=== PATIENT | male | born 1980 | race Caucasian/White ===

== ENCOUNTER 2016-12-30 17:29 | Emergency (ER) | payer MEDICAID ==
[~2016-12-30] VITALS: Ht 167.6 cm; Wt 59.0 kg
[2016-12-30 17:40] VITALS: Ht 167.6 cm; Wt 59.0 kg
--- NOTE | 2016-12-30 18:19 | ERD ---
ER Documentation Chief Complaint Date/Time DATE: 12/30/16 TIME: 18:00 Chief Complaint lac to right pinky today HPI 36-year-old male who presented emergency department for laceration to right fifth/pinky finger (dominant side). Stated this happened around 15:30 today while he was at work. Was throwing an old toilet bowl when this accidentally broke down injuring his right index finger. Not up-to-date on his tetanus shot. Denies headache, loss of consciousness, dizziness, blurry vision, changes in vision, photophobia, facial pain, ear pain, throat pain, difficulty swallowing, neck pain, shoulder pain, chest pain, cough, hemoptysis, abdominal pain, back pain, loss of appetite, nausea, vomiting, hematochezia, diarrhea, constipation, urinary symptoms, bladder and bowel incontinences, extremity weakness, extremity tenderness, numbness or tingling sensation, difficulty walking, recent travel, recent exposure to illness, recent antibiotic use in the last 3 months, fever, chills. Allergy: No known drug allergies. PMH: No past medical history. Medications: Not taking any prescription medications. Surgery: Denies. Family history: Denies. 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 ROS All systems reviewed and are negative except as per history of present illness. Medications Home Meds Active Scripts Cephalexin* (Keflex*) 500 Mg Capsule, 500 MG PO QID for 5 Days, CAP Prov:PASILABAN,KLAR F 12/30/16 Sulfamethoxazole/Trimethoprim* (Bactrim Ds* Tablet) 1 Each Tablet, 1 TAB PO DAILY, #7 TAB Prov:PASILABAN,KLAR F 12/30/16 Hydrocodone/Acetaminophen ([place]raw[place] 5-325 Tablet) 1 Each Tablet, 1 TAB PO Q6H Y for PAIN, #7 TAB Prov:PASILABAN,KLAR F 12/30/16 Allergies Allergies: Coded Allergies: No Known Allergy (Unverified , 12/30/16) PMhx/Soc Medical and Surgical Hx: pt denies Medical Hx, pt denies Surgical Hx History of Surgery: No Anesthesia Reaction: No Hx Neurological Disorder: No Hx Respiratory Disorders: No Hx Cardiac Disorders: No Hx Psychiatric Problems: No Hx Miscellaneous Medical Probl: No Hx Alcohol Use: No Hx Substance Use: No Hx Tobacco Use: No Smoking Status: Never smoker Physical Exam Vitals Vital Signs Date Time Temp Pulse Resp B/P Pulse Ox O2 Delivery O2 Flow Rate FiO2 12/30/16 17:40 98.5 100 18 128/86 100 Physical Exam CONSTITUTIONAL: Well-appearing; well-nourished; in no apparent distress. HEAD: Normocephalic; atraumatic. EYES: Conjunctiva clear, sclera non-icteric, EOM intact. PERRL Ears: Hearing intact. EACs clear, TMs non-bulging, non-inflamed, translucent & mobile, ossicles normal appearance, No obstructions, no erythema, no discharges Nose: No obstructions. No polyps. No external lesions. Mucosa non-inflamed. No external lesions, septum and turbinates normal. No rhinorrhea. No discharges. Frontal sinus is non-tender to palpation. Maxillary sinus is non-tender to palpation. MOUTH: Moist mucous membranes, no lesion, no obstructions, no vesicles, no thrush, patent airway Throat: Uvula in midline. Right tonsil is +1 with no erythema, no exudate. Left tonsil is +1 with no erythema, no exudate. Tolerating secretions well. Good gag reflex. Patent airway. Neck: Supple, without lesions, bruits, or adenopathy. No mass. Thyroid non- enlarged and non-tender to palpation. CHEST: Symmetrical chest. Respirations even and not labored. No retractions noted. CARDIOVASCULAR: Normal S1, S2. RRR. No murmurs, gallops. RESPIRATORY: Normal chest excursion with respiration; breath sounds clear and equal bilaterally; no wheezes, rhonchi, or rales. Breathing even and unlabored. Speaking in clear, full, and complete sentences w/ ease. ABDOMEN: Normal bowel sounds normal. Soft, round, non-distended, non-guarding, no tenderness, no rebound, no organomegaly, no masses, no pulsating abdominal mass. No hernia. No peritoneal signs. : No CVA tenderness. BACK: Symmetrical shoulder. Spine is midline without deformity, tenderness. No evidence of trauma or deformity. PELVIS: Stable pelvis. No evidence of trauma or deformity. MUSCULOSKELETAL: Normal gait and station. No misalignment, asymmetry, crepitation, defects, tenderness, masses, effusions, decreased range of motion, instability, atrophy or abnormal strength or tone in the head, neck, spine, ribs , pelvis or extremities. No calf tenderness. Please see skin assessment. NEUROVASCULAR: Distal pulses are present. Pedal pulse are present, equal, and normal. Capillary refills are < 2 seconds. NEUROLOGIC: Alert and oriented x4. Speaks full and clear sentences. Cranial Nerves II-XII normal. Sensation to pain, touch, and proprioception normal. Grossly unremarkable. No neurologic deficits. Romberg test is negative. PSYCHOLOGICAL: The patients mood and manner are appropriate. No hallucinations , delusions. Not SI. Not HI. Has the capacity to decide for self SKIN: Normal for age and ethnicity; warm; dry; good turgor; no apparent lesions or exudates. No rashes, hives, discoloration. Significant deep laceration to right fifth/pinky finger measuring approximately 4.2 cm in length on dorsal aspect and 5 cm in length on volar aspect (connected with each other). Dressing was applied to control bleeding. Right fifth/pinky finger has good and full range of motion with good flexion and extension with a score of 5/5. Right fourth/ring finger, right middle/long finger, right index/pointing finger , right thumb has good and full range of motion with good flexion and extension with a score of 5/5. Right wrist is unremarkable. Radial pulse is good. Right elbow/shoulder is good and full range of motion and is unremarkable examination. Left upper extremities unremarkable. Results 24 hrs Current Medications Medications (Trade) Dose Ordered Sig/Kacie Route PRN Reason Start Time Stop Time Status Last Admin Dose Admin Diphtheria/ Tetanus/Acell Pertussis (Adacel) 0.5 ml ONCE ONCE IM* 12/30/16 18:30 12/30/16 18:31 DC 12/30/16 18:19 Morphine Sulfate (morphine) 4 mg ONCE ONCE IM 12/30/16 18:30 12/30/16 18:31 DC 12/30/16 18:32 Ondansetron HCl (Zofran Odt) 4 mg ONCE STAT ODT 12/30/16 18:23 12/30/16 18:24 DC 12/30/16 18:31 Cephalexin (Keflex) 500 mg ONCE ONCE PO 12/30/16 19:00 12/30/16 19:01 DC 12/30/16 19:00 Trimethoprim/ Sulfamethoxazole (Bactrim (Ds)) 1 tab ONCE ONCE PO 12/30/16 19:00 12/30/16 19:01 DC 12/30/16 19:00 Lidocaine (Xylocaine 1% (Mdv) 20 ml) 20 ml ONCE ONCE SC 12/30/16 20:00 12/30/16 20:07 DC Lidocaine (Xylocaine 2% (Mdv) 20 ml) 20 ml ONCE ONCE INJ 12/30/16 20:30 12/30/16 20:31 DC Procedures/MDM Examination: Please see physical examination. Disease process, medical treatment was explained to the patient and family member. They verbalized understanding and agreed with the diagnostic tests, medical treatment, and follow-up care. Radiology: X-ray of the right fifth/pinky finger Impression: Marked soft tissue edema and irregularity compatible with history of deep laceration. There is no evidence of radiopaque soft tissue foreign body. There is no evidence of acute osseous abnormality. Treatment: Adacel IM. Mcgraws p.o. Keflex. Bactrim. Procedure: Laceration repair. Procedure was started with attending physician Dr. Gonsalo Ferreira. Lidocaine 2% 4 cc subcu/digital block. Copious/pressure irrigation with saline and Betadine. No foreign bodies found. Tendon not visualized. Noted arterial bleeding. Ethilon 4-0 x 29 and Ethilon 6-0 x2 total of 31 simple interrupted sutures to laceration of 4.2 cm dorsal aspect that extends to volar aspect of the right fifth/pinky finger that measures 5 cm in length. Laceration are connected with total length of 5.2 cm in length. Re-evaluation: Patient tolerated the laceration repair to right index finger. No active bleeding. Patient is able to flex and extend right fifth/pinky finger with a score of 5/5 on proximal, middle, and distal aspect of the phalanges. Circulation is intact. No neurovascular deficit. Right radial pulse is within normal limits. Has good and full range of motion of right thumb , right index, right middle, and right index/ring finger with full function of extension and flexion with a score of 5/5. Right wrist is unremarkable with good and full range of motion. Right elbow is unremarkable. Right shoulder is unremarkable. Has good color of right upper extremities. Patient stated that he feels much better at this time. Alert and oriented 4. Speaks full and clear sentences. Metal splint was applied to right fifth/pinky finger. No neurovascular deficits prior to and after the application of metal splint. Consultation: Case was discussed with attending physician, Dr. Gonsalo Ferreira who agreed with my laceration repair procedure, medical decision making, discharging the patient with pain medicine and Bactrim and Keflex. Have the patient come back in 2 days for a wound check. Differential diagnosis: Laceration Medical decision makin-year-old male who presented emergency department for laceration to right fifth/pinky finger (dominant side). Stated this happened around 15:30 today while he was at work. Was throwing an old toilet bowl when this accidentally broke down injuring his right index finger. Not up- to-date on his tetanus shot. Patient's complaint, patient history about his complaint, my physical findings, diagnostic test results, my reevaluation are consistent with final diagnosis of punctured wound/laceration secondary to injury with laceration repair procedure. Patient tolerated well. No evidence of tendon injury. Case was discussed with attending physician, Dr. Gonsalo Ferreira who agreed with my medical decision making. Patient also agreed with the plan of care as well as follow-up care. Medications prescribed are the following: Bactrim. Keflex. Mcgraws. Patient and family member are made aware of the side effects and adverse reactions of the medications prescribed. Instructed on when to seek emergent and medical attention in case allergic/anaphylactic reactions or severe side effects and or adverse reactions to medications. Patient and family member verbalized understanding. Patient instructed Instructed to follow-up with his PCP in 24-48 hours. Come back in 2 days for a wound check. Come back in 7-10 days for a removal of sutures. Instructed to Call 911 for chest pain, shortness of breath. Advised to come back here in ED as soon as possible for severity of symptoms which includes but not limited to: any new symptoms; shortness of breath/difficulty of breathing; cardiovascular changes; severe gastrointestinal symptoms; signs and symptoms of bleeding and or infection; signs of compartment syndrome/neurovascular changes; neurological changes/deficits. Patient and family member verbalized understanding. Upon discharge, patient is alert and oriented x 4, speaks full and clear sentences, denies pain, has no neurological deficits, has no neurovascular deficits, difficulty of breathing. Breathing even and unlabored. Lung sounds are clear to auscultation. Not in distress. Appears comfortable. Ambulatory with steady gait. Appears satisfied with care provided here in ED. Departure Diagnosis: Primary Impression: Laceration Additional Impressions: Puncture wound Finger laceration Finger injury Condition: Good Additional Instructions: Patient instructed Instructed to follow-up with his PCP in 24-48 hours. Come back in 2 days for a wound check. Come back in 7-10 days for a removal of sutures. Instructed to Call 911 for chest pain, shortness of breath. Advised to come back here in ED as soon as possible for severity of symptoms which includes but not limited to: any new symptoms; shortness of breath/difficulty of breathing; cardiovascular changes; severe gastrointestinal symptoms; signs and symptoms of bleeding and or infection; signs of compartment syndrome/neurovascular changes; neurological changes/deficits. Patient and family member verbalized understanding. NANCY VELAZQUEZ Dec 30, 2016 18:19
[2016-12-30] MEDS ORDERED: ONDANSETRON (ODT) 4 MG TAB ODT STA (18:23)
[2016-12-30] MEDS ORDERED: DIPHTH/TET/ACEL PERTUSS (ADULT) 0.5 ML VIAL IM* ONE (18:30)
[2016-12-30] MEDS ORDERED: morphine 10 MG INJ IM ONE (18:30)
[2016-12-30] MEDS ORDERED: TRIMETHOPRIM/SULFAMETHOX (DS) TAB PO ONE (19:00)
[2016-12-30] MEDS ORDERED: CEPHALEXIN 500 MG CAP PO ONE (19:00)
--- NOTE | 2016-12-30 19:39 | RADRPT ---
PROCEDURE: XR Finger. CLINICAL INDICATION: Pain. Deep laceration. TECHNIQUE: Right fifth finger x-rays, three views. COMPARISON: None. FINDINGS: Bony mineralization is normal. Bony cortices are intact. Joint spaces are well maintained. Marked soft tissue edema and soft tissue irregularity are present and compatible with history of deep lacer ation. An overlying bandaging is in place. There is no evidence of radiopaque soft tissue foreign b goldy. IMPRESSION: Marked soft tissue edema and irregularity compatible with history of deep laceration. There is no e vidence of radiopaque soft tissue foreign body. There is no evidence of acute osseous abnormality. RPTAT: HLST .Lee Ann Cabrera MD, Date Time Electronically viewed and signed by .Lee Ann Cabrera MD, on 12/30/2016 19:39 .T/
[2016-12-30] MEDS ORDERED: LIDOCAINE 1% (MDV) 20 ML INJ SC ONE (20:00)
[2016-12-30] MEDS ORDERED: LIDOCAINE 2% (MDV) 20 ML INJ INJ ONE (20:30)
[2016-12-30] MEDS ORDERED: HYDR-906 PO (22:01)
[2016-12-30] MEDS ORDERED: SULF1TAB31 PO (22:01)
[2016-12-30] MEDS ORDERED: CEPH-443 PO (22:01)
[2016-12-30] MEDS ORDERED: BACITRACIN 0.9 GM OINT TOP ONE (22:30)
[2016-12-30 22:45] VITALS: BP 109/66; PULSE 88; RESP 16
[2016-12-30] MEDS ORDERED: ACETAMINOPHEN 325 MG TAB PO ONE (23:00)
== END 2016-12-30 22:46 | disposition home or self-care (01) ==
LOC: FTE 17:29
DX: S61.216A Laceration without foreign body of right little finger without damage to nail, initial encounter (principal); S61.236A Puncture wound without foreign body of right little finger without damage to nail, initial encounter; W26.8XXA Contact with other sharp object(s), not elsewhere classified, initial encounter; Y92.89 Other specified places as the place of occurrence of the external cause; Z23 Encounter for immunization
CPT/HCPCS: 12002; 73140; 90471; 90715; 96372; J2270; Z7502; Z7610

== ENCOUNTER 2017-01-03 10:45 | Emergency (ER) | payer MEDICAID ==
[~2017-01-03] VITALS: Ht 157.5 cm; Wt 58.0 kg
[~2017-01-03 10:45] MED LIST: CEPH-443 PO; HYDR-906 PO; SULF1TAB31 PO
[2017-01-03 10:54] VITALS: Ht 157.5 cm; Wt 58.0 kg
--- NOTE | 2017-01-03 12:53 | ERD ---
ER Documentation Chief Complaint Date/Time DATE: 01/03/17 TIME: 12:48 Chief Complaint L hand pinky LAC follow up. wound dressed. HPI 36-year-old right-handed male patient with no significant past medical history presents to the ED for a wound check of the right pinky due to an accident with a broken ceramic toilet bowl that cut his right pinky. Patient reports that he has been taking his antibiotics appropriately and consistently. States that he did try to apply some of the oral antibiotics to the laceration site. Reports that he has 31 sutures noted. States that he has some slight numbness and tingling but denies any loss of sensation or loss of range of motion. Denies any fever, chills. ROS All systems reviewed and are negative except as per history of present illness. Medications Home Meds Active Scripts Cephalexin* (Keflex*) 500 Mg Capsule, 500 MG PO QID for 5 Days, CAP Prov:PASILABAN,JOSE ANGELAR F 12/30/16 Sulfamethoxazole/Trimethoprim* (Bactrim Ds* Tablet) 1 Each Tablet, 1 TAB PO DAILY, #7 TAB Prov:PASILABAN,KLAR F 12/30/16 Hydrocodone/Acetaminophen ([place] 5-325 Tablet) 1 Each Tablet, 1 TAB PO Q6H Y for PAIN, #7 TAB Prov:PASILABAN,KLAR F 12/30/16 Allergies Allergies: Coded Allergies: No Known Allergy (Unverified , 12/30/16) PMhx/Soc Medical and Surgical Hx: pt denies Medical Hx, pt denies Surgical Hx History of Surgery: No Anesthesia Reaction: No Hx Neurological Disorder: No Hx Respiratory Disorders: No Hx Cardiac Disorders: No Hx Psychiatric Problems: No Hx Miscellaneous Medical Probl: No Hx Alcohol Use: No Hx Substance Use: No Hx Tobacco Use: No Smoking Status: Never smoker Physical Exam Vitals Vital Signs Date Time Temp Pulse Resp B/P Pulse Ox O2 Delivery O2 Flow Rate FiO2 01/03/17 10:54 97.7 83 20 112/78 97 Physical Exam Const: [id number], well-nourished. In no acute distress. Head: Atraumatic, normocephalic Eyes: Normal Conjunctiva without injection ENT: Normal external ear, nose and mouth. Neck: Full range of motion. No meningismus. Resp: Clear to auscultation bilaterally. No wheezing, rhonchi, rales, or crackles. No accessory muscle use. No retractions. Cardio: Regular rate and rhythm, no murmurs Skin: No petechiae or rashes Back: No midline tenderness. No CVA tenderness. Ext: No cyanosis, or edema. Cap refill less than 2 seconds. Distal pulses intact bilaterally. 31 sutures noted on 4.2 cm U-shaped laceration noted on the medial aspect of patient's right pinky with good range of motion including flexion, extension. Patient had full range of motion of the DIP, PIP, MCP joints bilaterally. Blood blister noted in between the U-shaped laceration. Neur: Awake and alert. Normal gait and coordination. Muscle strength 5/5. Sensation intact bilaterally. Psych: Normal Mood and Affect Procedures/MDM 36-year-old male patient with no sniffing a past medical history who is right- handed presents the ED for a wound check of the right pinky finger for laceration she sustained from a broken ceramic toilet bowl. Patient is afebrile and nontoxic-appearing. Patient has normal vital signs. At this time patient's laceration is healing appropriately and well. The skin between the laceration sites could likely be secondary to a blood blister. The botanical technical officer cleaned the affected when I placed patient in a metal splint. 31 sutures noted without any signs of dehiscence. Low suspicion for sepsis, cellulitis, or deep space infection. Splint Assessment: Neurovascularly intact pre and post splint placement with good fit. Wound check recommended in 2 days. Patient's extremity symptoms have stabilized while they have been evaluated in the department and are appropriate for outpatient follow up. No evidence of fractures, dislocations, compartment syndrome, neurologic injury, vascular injury, open joint, open fracture, tendon laceration, septic arthritis, osteomyelitis, DVT, foreign body, or other emergent conditions. Follow up with primary care physician in 2 days. Instructed patient to return to the ED sooner for any worsening symptoms. Patient's questions were answered. Patient understood and agreed with discharge plan. Patient discharged stable. Departure Diagnosis: Primary Impression: Encounter for wound re-check Condition: Stable Patient Instructions: Wound Check, Lac F/U (No Infection) Referrals: COMMUNITY CLINICS YOU HAVE RECEIVED A MEDICAL SCREENING EXAM AND THE RESULTS INDICATE THAT YOU DO NOT HAVE A CONDITION THAT REQUIRES URGENT TREATMENT IN THE EMERGENCY DEPARTMENT. FURTHER EVALUATION AND TREATMENT OF YOUR CONDITION CAN WAIT UNTIL YOU ARE SEEN IN YOUR DOCTORS OFFICE WITHIN THE NEXT 1-2 DAYS. IT IS YOUR RESPONSIBILITY TO MAKE AN APPOINTMENT FOR FOLOW-UP CARE. IF YOU HAVE A PRIMARY DOCTOR --you should call your primary doctor and schedule an appointment IF YOU DO NOT HAVE A PRIMARY DOCTOR YOU CAN CALL OUR PHYSICIAN REFERRAL HOTLINE AT IF YOU CAN NOT AFFORD TO SEE A PHYSICIAN YOU CAN CHOSE FROM THE FOLLOWING [facility] [address] [facility] [address] [facility] [address] [facility] [address] [facility] [address] [facility]. [facility] [address] [facility] YOU HAVE RECEIVED A MEDICAL SCREENING EXAM AND THE RESULTS INDICATE THAT YOU DO NOT HAVE A CONDITION THAT REQUIRES URGENT TREATMENT IN THE EMERGENCY DEPARTMENT. FURTHER EVALUATION AND TREATMENT OF YOUR CONDITION CAN WAIT UNTIL YOU ARE SEEN IN YOUR DOCTORS OFFICE WITHIN THE NEXT 1-2 DAYS. IT IS YOUR RESPONSIBILITY TO MAKE AN APPOINTMENT FOR FOLOW-UP CARE. IF YOU HAVE A PRIMARY DOCTOR --you should call your primary doctor and schedule and appointment IF YOU DO NOT HAVE A PRIMARY DOCTOR YOU CAN CALL OUR PHYSICIAN REFERRAL HOTLINE AT . IF YOU CAN NOT AFFORD TO SEE A PHYSICIAN YOU CAN CHOSE FROM THE FOLLOWING [facility] INSTITUTIONS: [facility] [address] [place] [address] [facility] [address] [place] [address] [facility] [address] [place] [address] [facility] Additional Instructions: WOUND CHECK:CONSULTE A LAST MDICO EN 2 carey para manny LAST HERIDA. Llame al doctor MAANA y nate xavier GENTRY PARA DENTRO DE 2-3 DE [place].Dgale a la secretaria que nosotros le instruimos hacer esta gentry.Avise o llame si last condicin se empeora antes de la gentry. Regresa aqui si peor o no mejor. JONO QUINONES PA-C Jan 03, 2017 12:53
== END 2017-01-03 12:32 | disposition home or self-care (01) ==
LOC: FTE 10:45
DX: Z48.01 Encounter for change or removal of surgical wound dressing (principal)
CPT/HCPCS: 29130; Z7502

== ENCOUNTER 2017-01-20 19:58 | Emergency (ER) | payer MEDICAID ==
[~2017-01-20] VITALS: Ht 160 cm; Wt 73.6 kg
[2017-01-20 20:02] VITALS: Ht 160 cm; Wt 73.6 kg
[2017-01-20] MEDS ORDERED: SULF1TAB31 PO (22:08)
[2017-01-20] MEDS ORDERED: CEPH-443 PO (22:09)
[2017-01-20] MEDS ORDERED: ACET500C5 PO (22:09)
--- NOTE | 2017-01-20 22:18 | ERD ---
ER Documentation Chief Complaint Date/Time DATE: 01/20/17 TIME: 22:14 Chief Complaint REMOVAL OF STITCHES TO RIGHT 5TH FINGER. HPI Patient is a 36-year-old male here for laceration and suture removal. Patient states that on 12/30/16 he had 31 sutures placed. He states that he forgot to come and get his sutures removed. However he states in the last 2 days he has developed redness and swelling to his right fifth digit. Denies fever or chills. States that he has difficulty bending his finger. He has mild pain. Denies radiation of pain. Denies numbness or tingling. Denies headache or dizziness. Denies fever or chills. ROS All systems reviewed and are negative except as per history of present illness. Medications Home Meds Active Scripts Acetaminophen* (Tylophen*) 500 Mg Capsule, 1 CAP PO Q6H Y for PAIN AND OR ELEVATED TEMP, #20 CAP Prov:SHOJONTARIANLINDAAZ PA-C 01/20/17 Cephalexin* (Keflex*) 500 Mg Capsule, 500 MG PO QID for 7 Days, CAP Prov:SHOOSHTARIAN,LINDAAZ PA-C 01/20/17 Sulfamethoxazole/Trimethoprim* (Bactrim Ds* Tablet) 1 Each Tablet, 1 TAB PO BID , #14 TAB Prov:SHOJONTARIANLINDAAZ PA-C 01/20/17 Cephalexin* (Keflex*) 500 Mg Capsule, 500 MG PO QID for 5 Days, CAP Prov:PASILABAN,KLAR F 12/30/16 Sulfamethoxazole/Trimethoprim* (Bactrim Ds* Tablet) 1 Each Tablet, 1 TAB PO DAILY, #7 TAB Prov:PASILABAN,JOSE ANGELAR F 12/30/16 Hydrocodone/Acetaminophen ([place] 5-325 Tablet) 1 Each Tablet, 1 TAB PO Q6H Y for PAIN, #7 TAB Prov:PASILABAN,KLAR F 12/30/16 Allergies Allergies: Coded Allergies: No Known Allergy (Unverified , 01/20/17) PMhx/Soc History of Surgery: No Anesthesia Reaction: No Hx Neurological Disorder: No Hx Respiratory Disorders: No Hx Cardiac Disorders: No Hx Psychiatric Problems: No Hx Miscellaneous Medical Probl: No Hx Alcohol Use: No Hx Substance Use: No Hx Tobacco Use: No Smoking Status: Never smoker FmHx Family History: No coronary disease, No diabetes, No other Physical Exam Vitals Vital Signs Date Time Temp Pulse Resp B/P Pulse Ox O2 Delivery O2 Flow Rate FiO2 01/20/17 20:02 98.0 68 18 118/80 98 Physical Exam GENERAL: Well-developed, well-nourished el. Appears in no acute distress. HEAD: Normocephalic, atraumatic. EYES: Pupils are equally reactive bilaterally. EOMs grossly intact. No conjunctival erythema. ENT: Moist mucous membranes. No uvula deviation. No kissing tonsils. No exudates. NECK: Supple. No lymphadenopathy or thyromegaly. No meningismus. negative kernig. negative brudinski. LUNG: Clear to auscultation bilaterally. No rhonchi, wheezing, rales or coarse breath sounds. HEART: Regular rate and rhythm. No murmurs, rubs or gallops. Extremities: Equal pulses bilaterally. No peripheral clubbing, cyanosis or edema. No unilateral leg swelling. Slight tenderness and erythema and swelling to the right fifth digit. Patient able to flex the PIP and DIP joint without pain. No drainage. NEUROLOGIC: Alert and oriented. Moving all four extremities. 5/5 strength in all extremities. Normal speech. Steady gait. SKIN: Normal color. Warm and dry. No rashes or lesions. Capillary refill < 2 seconds Procedures/MDM ER COURSE: I kept the patient and/or family informed of laboratory and diagnostic imaging results throughout the emergency room course. PROCEDURES Suture Removal by me: Sutures removed with tweezers and scissors without incident. Wound shows no evidence of infection, foreign body, neurologic injury, vascular injury, open joint or tendon laceration. Patient to follow up PRN. MEDICAL DECISION MAKING: This is a 36-year-old male who presents with suture removal. Vital signs were reviewed. Patient is afebrile. Patient is not hypoxic. Patient is not toxic or ill-appearing. 31 sutures were removed from patient's left fifth digit. I consulted with my supervising physician Dr. Lainez who came to examine patient at bedside and agrees with my medical decision making and discharge plans. Patient has localized cellulitis. Low suspicion for necrotizing fasciitis, SJS , toxic epidermal necrolysis, Kawasaki, erythema multiforme, gangrene, scarlet fever, meningococcemia, sepsis, anaphylaxis, sepsis, deep space infection, or foreign body. I have low suspicion for flexor tenosynovitis. DISCHARGE: At this time, patient is stable for discharge and outpatient management with no new complaints during the ER course. Patient was sent home with Tylenol, Bactrim and Keflex. Patient will be discharged home with instructions to recheck for new or worsening symptoms such as fever, nausea, weakness, LOC and to follow up with primary care in the next 1-2 days. Patient was advised to return to the ER for any new or worsening symptoms. Plan was discussed and patient and/or family understands and agrees. Home instructions were given. Departure Diagnosis: Primary Impression: Cellulitis Site of cellulitis: extremity Site of cellulitis of extremity: finger Laterality: right Qualified Code: L03.011 - Cellulitis of finger of right hand Additional Impression: Encounter for removal of sutures Condition: Stable Patient Instructions: Suture Removal, No Complication Additional Instructions: Llame al doctor MAANA y nate xavier GENTRY PARA DENTRO DE 1-2 DE [place]ANT[place].Dgale a la secretaria que nosotros le instruimos hacer esta gentry.Avise o llame si duong condicin se empeora antes de la gentry. Regresa aqui si peor o no mejor. CHARLEY HAYNES PA-C Jan 20, 2017 22:18
[2017-01-20 22:29] VITALS: BP 126/90; PULSE 63; RESP 18; TEMP 98.1
== END 2017-01-20 22:30 | disposition home or self-care (01) ==
LOC: FTE 19:58
DX: L03.011 Cellulitis of right finger (principal)
CPT/HCPCS: 99284

== ENCOUNTER 2018-04-29 06:31 | Emergency (ER) | END 2018-04-29 08:30 | disposition home or self-care (01) ==

== ENCOUNTER 2018-06-29 00:30 | Emergency (ER) | END 2018-06-29 02:38 | disposition home or self-care (01) ==